=== PATIENT | female | born 1995 | race American Indian/Alaskan Native ===

== ENCOUNTER 2020-03-03 16:26 | Emergency (ER) | payer OTHER ==
[2020-03-03] MEDS ORDERED: IBUPROFEN 800 MG TAB PO ONE (20:20)
[2020-03-03] MEDS ORDERED: DIPHtheria,PERTUSSIS(ACELL),TETANUS VACCINE/PF 0.5 ML VIAL IM ONE (20:20)
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
[2020-03-03 22:10] VITALS: BP 128/86
== END 2020-03-03 22:18 | disposition home or self-care (01) ==
LOC: ED 16:26
DX: S09.90XA Unspecified injury of head, initial encounter (principal); S16.1XXA Strain of muscle, fascia and tendon at neck level, initial encounter; S40.811A Abrasion of right upper arm, initial encounter; M79.631 Pain in right forearm; M25.561 Pain in right knee; Z79.899 Other long term (current) drug therapy; V49.49XA Driver injured in collision with other motor vehicles in traffic accident, initial encounter; W22.10XA Striking against or struck by unspecified automobile airbag, initial encounter; Y93.89 Activity, other specified; Y92.410 Unspecified street and highway as the place of occurrence of the external cause; Y99.8 Other external cause status
CPT/HCPCS: 70450; 72125; 90471; 90715